=== PATIENT | male | born 1985 | race Two or more races ===

== ENCOUNTER 2025-01-01 21:37 | Emergency (ER) | payer MEDICAID, SELFPAY ==
[2025-01-01 21:37] VITALS: BMI 29.2
--- NOTE | 2025-01-01 21:44 | EKG_ITS ---
[facility] Test Date: 2025-01-01 Pat Name: VITA ESCOBEDO Department: Room: - Gender: Male Mentally Retarded Teacher: : 1985 Requested By: ED Temporary Provider Order Number: [id number] Reading MD: ED Temporary Provider Measurements Intervals [place] Rate: 109 P: 36 [place]: 166 QRS: 10 QRSD: 114 T: 20 QT: 311 QTc: 420 Interpretive Statements SINUS TACHYCARDIA POSSIBLE LEFT ATRIAL ENLARGEMENT [-0.1mV P-WAVE IN V1/V2] Compared to ECG 09/25/2022 10:22:08 Sinus rhythm no longer present /store/S0/[id number].pdf
[2025-01-01 21:51] VITALS: BP 181/109; PULSE 119; RESP 20; TEMP 36.8; O2SAT 98
--- NOTE | 2025-01-01 22:06 | XR_ITS ---
EXAMINATION: PA chest single view TECHNIQUE: Upright PA chest single view Date and time: January 01, 2025 1046 hours INDICATIONS: Chest pain and diaphoresis beginning 2 hours ago. FINDINGS: Mild prominence left ventricle No pneumonia or pulmonary edema. Osseous structures intact IMPRESSION: No active disease
--- NOTE | 2025-01-01 22:07 | XR_ITS ---
Examination: CT chest, without intravenous contrast. CT abdomen, without intravenous contrast. CT pelvis, without intravenous contrast. 2-D sagittal and coronal reconstructions. 3-D reconstructions. Date and time of exam: January 01, 2025, 1153 hours INDICATIONS: Chest pain abdominal pain with palpable sternal mass today CTDI vol (mgy) 7.99 DLP (MGycm) 672 Technique: Multiple CT images, 3.0 mm slice thickness, obtained chest, abdomen, pelvis, with the high-resolution 64 slice scanner.. Sagittal and coronal 2-D reconstructions are obtained. 3-D reconstructions Low dose protocols were performed. One or more of the following dose reduction techniques were used; automated exposure control, adjustment of the mA and/or KV according to patient size, use of iterative reconstruction technique. Findings: No thoracic aortic aneurysm dilatation 31 mm presternal subcutaneous soft tissue mass No mediastinal lymphadenopathy No pneumonia or pulmonary edema No visualized liver or splenic lesion Contracted gallbladder No pancreatic or adrenal mass No renal or ureteral calculi, no hydronephrosis Aorta normal size. Normal appendix No bowel obstruction or diverticulitis Urinary bladder intact No prostatomegaly Mild osteopenia IMPRESSION: 31 mm presternal subcutaneous soft tissue mass, recommend ultrasound soft tissue of this mass for further assessment No pneumonia or pulmonary edema No renal or ureteral calculi, no hydronephrosis Normal appendix No bowel obstruction or diverticulitis
[2025-01-01 22:26] LABS: Collection Type, Urine Clean Catch
[2025-01-01] MEDS: IBUPROFEN TAB 400 MG TABLET 800 MG PO (22:32)
[2025-01-01] MEDS: ACETAMINOPHEN w/COD 300-30 TABLET 2 TAB PO (22:33)
[2025-01-01] MEDS: ONDANSETRON ODT 4 MG TABRAP PO (22:33)
[2025-01-01 22:42] LABS: Bilirubin,Urine Negative (Negative); Blood,Urine Negative (Negative); Clarity,Urine Clear (Clear/Hazy); Color,Urine Lt-Yellow (Lt Yel-Yel); Culture Indicated,Urine Not Indicated; Glucose, Urine Negative (Negative); Ketones,Urine Trace (Negative); Leukocyte Esterase,Urine Negative (Negative); Nitrite,Urine Negative (Negative); PH,Urine 6.5 (5.0-7.0); Protein,Urine Negative (Neg - Trace); RBC,Urine 1 /hpf (0-3); Specific Gravity,Urine 1.010 (1.001-1.035); Squamous Epithelial Cell,Urine < 1 /hpf (0-5); Urobilinogen,Urine Negative mg/dL (0.0-1.0); WBC,Urine 1 /hpf (0-5)
--- NOTE | 2025-01-01 22:53 | EDNOTE_ITS ---
ED Chest Pain RME/HPI General Chief Complaint: Chest Pain Stated Complaint: CHEST PAIN Time Seen by Provider: 01/01/25 22:16 Arrival date/time: 01/01/25 21:37 RME / HPI RME / HPI narrative: See [facility] for Dr. Heath's HPI Documentation. Related Data Previous Rx's ?Medication ?Instructions ?Recorded cephalexin 500 mg tablet 500 mg PO BID #14 tabs 10/03 ibuprofen 800 mg tablet 800 mg PO Q6H PRN pain #10 t abs 10/03/20 sulfamethoxazole 800 1 tab PO BID #14 tabs mg-trimethoprim 160 mg tablet (Bactrim DS) famotidine 20 mg tablet 20 mg PO BID #30 tabs ondansetron 4 mg disintegrating 4 mg PO Q8H #14 tabs 0 09/25/22 tablet Allergies Allergy/AdvReac Type Severity Reaction Status Date / Time No Known Allergies Allergy Verified 01/01/25 21:40 Review of Systems Review of Systems Systems Reviewed: All systems reviewed, normal except as documented Past Medical History Social History SMOKING STATUS: Current every day smoker ED Exam Narrative Physical exam: See [facility] for Dr. Heath's Physical Exam Documentation. Course Quality Measures none Orders Category Date Time Status EKG (ED ONLY) *Do not use* NOW Care 01/01/25 21:[address] chest abdomen pelvis wo Stat Exams 01/01/25 22:07 Completed EKG (ED Only) Stat Exams 01/01/25 21:44 Draft XR chest 1V portable Stat Exams 01/01/25 22:06 Completed Alcohol, Blood Medical Stat Lab 01/01/25 23:02 Completed Amylase Stat Lab 01/01/25 23:02 Completed BNP [B-Type Natriuretic Peptide] Stat Lab 01/01/25 23:02 Completed Bilirubin,Direct Stat Lab 01/01/25 23:02 Completed CBC Stat Lab 01/01/25 23:02 Completed CK [Creatine Kinase] Stat Lab 01/01/25 23:02 Completed CMP [Comprehensive Metabolic Panel] Stat Lab 01/01/25 23:02 Completed CRP [C-Reactive Protein] Stat Lab 01/01/25 23:02 Completed Drug Screen,Urine Stat Lab 01/01/25 22:18 Completed ESR [Sed Rate (ESR)] Stat Lab 01/01/25 23:02 Completed Hemoglobin A1C [Glycohemoglobin w (eAG)] Stat Lab 01/01/25 23:02 Completed Lactate (Lactic Acid) Stat Lab 01/01/25 23:02 Completed Lipase Stat Lab 01/01/25 23:02 Completed Magnesium Stat Lab 01/01/25 23:02 Completed Procalcitonin Stat Lab 01/01/25 23:02 Completed TSH [Thyroid Stimulating Hormone] Stat Lab 01/01/25 23:02 Completed Troponin I Stat Lab 01/01/25 23:02 Completed UA, C/S IF [Urinalysis, C/S if Indicated] Stat Lab 01/01/25 22:18 Completed ACETAMINOPHEN w/COD 300-30 [Tylenol w/Cod #3] Med 01/01/25 22:01 Discontinued 2 tab PO X1 ONE Ibuprofen Tab [Motrin Tab] Med 01/01/25 22:01 Discontinued 800 mg PO X1 ONE Ondansetron Odt [Zofran Odt] Med 01/01/25 22:01 Discontinued 4 mg PO X1 ONE Vital Signs Vital signs: Vital Signs Temperature 98.2 F 01/01/25 21:51 Pulse Rate 119 H 01/01/25 21:51 Respiratory Rate 20 01/01/25 21:51 Blood Pressure 181/109 H 01/01/25 21:51 Pulse Oximetry (%) 98 01/01/25 21:51 Oxygen Delivery Method Room Air 01/01/25 21:51 Chest Pain MDM Narrative MDM Narrative:: This section includes all my notes and documentations, including HPI, PE, and ED course. Beltran Heath MD HPI: 39 y/o male here with about 2-year history of chest pain anteriorly. Thinks it is due to a mass that has been present there for about 2 years. No shortness of breath. No palpitations. No unusual fatigue or malaise. No other complaints. ROS: All negative except as documented in HPI. Physical Exam: General: Alert and oriented. No acute distress when remaining still. Eyes: Conjunctivae and lids clear. ENT: No nasal congestion. Neck: Supple. Heart: RRR. Lungs: No respiratory distress. Good air movement. No rhonchi, wheezing, rales. Chest: Anteriorly and in the inferior sternal area, there is a plum sized erythematous lump with tenderness. Abdomen: Soft and nontender. Normal bowel sounds. No distension. No rebound or guarding. Skin: Warm and dry. Neuro: Alert and oriented X 3. I reviewed all diagnostic test results: My interpretation of the EKG is: Sinus rhythm (109 bpm) with nonspecific ST-T changes. My interpretation of the chest x-ray is: NAD. My review of the Chest/Abdomen/Pelvis CT report is: 31 mm presternal subcutaneous soft tissue mass. Blood tests and urine tests remarkable for serum alcohol 235.6 and UDS positive for marijuana. At this point, diagnoses include: Chest mass Alcohol intoxication Marijuana use Treatment here included: Zofran ODT 4 mg Motrin 800 mg Two Tylenol #3 When I looked for the patient for reevaluation and to discuss diagnostic tests, I was told the patient eloped. Beltran Heath MD Patient data External records reviewed:: [facility] previous records (Reviewed prior ED records from 09/25/22. Patient was seen for Gastritis.) Clinical information provided by:: patient Social determinants that could affect healthcare access:: other (specify) (Tobacco use) Patient has the following chronic illnesses:: None reported How is presenting disease/condition affected by chronic disease/condition?: no chronic disease Evaluation data The following diagnostics were reviewed and interpreted by me:: lab results, radiology exam(s) and EKG tracing(s) (My interpretation of the EKG is: Sinus rhythm (109 bpm) with nonspecific ST-T changes. Beltran Heath MD) Lab and/or radiology exams considered but not ordered:: None Interpretation Summary: I reviewed all diagnostic test results: My interpretation of the EKG is: Sinus rhythm (109 bpm) with nonspecific ST-T changes. My interpretation of the chest x-ray is: NAD. My review of the Chest/Abdomen/Pelvis CT report is: 31 mm presternal subcutaneous soft tissue mass. Blood tests and urine tests remarkable for serum alcohol 235.6 and UDS positive for marijuana. Medications / Prescriptions Medications or Prescriptions considered but not ordered:: None Medication administrations:: Medication Administration History Discontinued Medications Acetaminophen/Codeine Phosphate (Acetaminophen W/Cod 300-30 Tablet) 2 tab PO X1 ONE Stop: 01/01/25 22:02 Last Admin: 01/01/25 22:33 Dose: 2 tab Documented By: RADHA Ibuprofen (Ibuprofen Tab 400 Mg Tablet) 800 mg PO X1 ONE Stop: 01/01/25 22:02 Last Admin: 01/01/25 22:32 Dose: 800 mg Documented By: RADHA Ondansetron HCl (Ondansetron Odt 4 Mg Tabrap) 4 mg PO X1 ONE; Protocol Stop: 01/01/25 22:02 Last Admin: 01/01/25 22:33 Dose: 4 mg Documented By: RADHA Treatment here included: Zofran ODT 4 mg Motrin 800 mg Two Tylenol #3 Consultations Consultation(s) initiated? (list below): No Diagnosis Chest Pain Differential Diagnosis: fracture of rib, pneumothorax, stable angina, unstable angina pectoris, atypical chest pain, st elevation myocardial infarction, costochondritis and biliary colic Most likely diagnosis given after review of the tests above:: Chest mass Alcohol intoxication Marijuana use Admission Indicated Admission indicated?: not indicated Explain why admission is indicated or not indicated:: Patient eloped. Admission Request Was there a request for admission?: No Disposition Plan Disposition Plan: other (specify) (Elopement) Discharge Plan Plan Patient Disposition: Elopement Prescriptions/Referrals Prescriptions/Med Rec: No Action cephalexin 500 mg tablet 500 mg PO BID Qty: 14 0RF sulfamethoxazole-trimethoprim [Bactrim DS] 800-160 mg tablet 1 tab PO BID Qty: 14 0RF ibuprofen 800 mg tablet 800 mg PO Q6H PRN (Reason: pain) Qty: 10 0RF ondansetron 4 mg tablet,disintegrating 4 mg PO Q8H Qty: 14 0RF famotidine 20 mg tablet 20 mg PO BID Qty: 30 1RF Referrals: No Primary/Family,Physician [Primary Care Provider] - In 1 week Problem List Clinical Impression: Chest pain Patient/Caregiver Discharge Instructions Print Language: Fijian
[2025-01-01 23:13] LABS: Lactate (Lactic Acid) 1.9 mMol/L (0.4-2.0)
[2025-01-01 23:15] LABS: Basophils # (Auto) 0.2 Thou/mm3 (0.0-0.2); Basophils % (Auto) 2 % (0-2.5); Eosinophils # (Auto) 0.3 Thou/mm3 (0.0-0.5); Eosinophils % (Auto) 3 % (0-10); Hematocrit 51.0 % (41.0-53.0); Hemoglobin 17.7 g/dL (13.5-16.0); Immature Granulocytes Auto 0.05 Thou/mm3 (0.00-0.00); Lymphocytes # (Auto) 3.3 Thou/mm3 (1.0-4.8); Lymphocytes % (Auto) 32 % (10-50); Mean Corpuscular HGB Conc 34.7 g/dl (31.0-37.0); Mean Corpuscular Hemoglobin 33.8 pg (25.0-35.0); Mean Corpuscular Volume 97 fL (80-100); Monocytes # (Auto) 0.7 Thou/mm3 (0.0-0.8); Monocytes % (Auto) 6 % (0-12); Neutrophils # (Auto) 6.0 Thou/mm3 (1.8-7.7); Neutrophils % (Auto) 57 % (37-80); Nucleated Red Blood Cell # 0.00 Thou/mm3 (0.00-0.00); Nucleated Red Blood Cell % 0 /100 WBC (0); Platelet Count 227 Thou/mm3 (140-440); RDW Standard Deviation 52.2 fL (35.1-43.9); Red Blood Count 5.24 Miln/mm3 (4.50-5.90); White Blood Count 10.5 Thou/mm3 (3.8-10.6)
[2025-01-01 23:28] LABS: Sed Rate (ESR) 8 mm/hr (0-15)
[2025-01-01 23:45] LABS: Alanine Aminotransferase 103 U/L (10-49); Albumin, Serum 4.5 gm/dL (3.5-5.0); Albumin/Globulin Ratio 1.8 (1.2-2.2); Alcohol, Blood Medical 235.6 mg/dL (0-10.0); Alkaline Phosphatase 87 U/L (46-116); Amylase 71 U/L (30-118); Anion Gap 11 (7-16); Aspartate Amino Transferase 96 U/L (0-34); B-Type Natriuretic Peptide < 20 pg/mL (0-100); BUN/Creatinine Ratio 6 Ratio (12-20); Bilirubin,Direct 0.1 mg/dL (0.0-0.3); Bilirubin,Total 0.3 mg/dL (0.3-1.2); Blood Urea Nitrogen < 5 mg/dL (9-23); C-Reactive Protein < 0.5 mg/dL (0.0-0.9); Calcium 9.4 mg/dL (8.3-10.6); Calcium (Corrected) 9.4 mg/dL (8.5-10.1); Carbon Dioxide 26.7 mMol/L (20.0-31.0); Chloride 104 mMol/L (98-107); Creatine Kinase 140 U/L (34-171); Creatinine (Component) 0.9 mg/dL (0.6-1.3); Estimated Creatinine Clearance 127.2 mL/min (>60); Globulin 2.5 gm/dL (2.3-3.5); Glucose 153 mg/dL (74-106); Lipase 42 U/L (12-53); Magnesium 2.3 mg/dL (1.6-2.6); Osmolality,Calculated 283 (275-295); Potassium 3.8 mMol/L (3.4-5.1); Procalcitonin 0.05 ng/ml (0.0-0.49); Sodium 142 mMol/L (136-145); Thyroid Stimulating Hormone 1.08 uIU/mL (0.55-4.78); Total Protein 7.0 gm/dL (5.7-8.2); Troponin I < 0.002 ng/mL (0.0-0.045); eGFR > 60 See Note
[2025-01-02 00:09] LABS: Amphetamine/Methamp Scrn,U Negative (Negative); Barbiturate Screen,Urine Negative (Negative); Benzodiazepines Screen,Urine Negative (Negative); Benzoylecgonine Screen, Ur Negative (Negative); Fentanyl Screen,Urine Negative (Negative); Opiate Screen,Urine Negative (Negative); THC Screen,Urine Positive (Negative)
[2025-01-02 00:10] LABS: Glucose Estimated Average 103 mg/dL (80-131); Hemoglobin A1C 5.2 % Hgb (4.8-6.0)
--- NOTE | 2025-01-02 00:45 | PC.NURSE ---
CALLED PATIENT IN THE LOBBY AND OUTSIDE, NO ANSWER RECEIVED.
--- NOTE | 2025-01-02 03:22 | PC.NURSE ---
CALLED PATIENT IN THE LOBBY AND OUTSIDE, NO ANSWER RECEIVED.
--- NOTE | 2025-01-02 03:28 | PC.NURSE ---
CALLED PATIENT IN THE LOBBY AND OUTSIDE, NO ANSWER RECEIVED.
== END 2025-01-02 03:28 | disposition left against medical advice (07) ==
PROVIDERS: Emergency Provider Emergency Medicine
DX: R07.9 Chest pain, unspecified (principal); R22.2 Localized swelling, mass and lump, trunk; R00.0 Tachycardia, unspecified
CPT/HCPCS: 36415; 71045; 71250; 74176; 80053; 80307; 80320; 81001; 82150; 82248; 82550; 83036; 83605; 83690; 83735; 83880; 84145; 84443; 84484; 85025; 85652; 86140; 93005; 99283; Q0162; A9270; G0480